=== PATIENT | female | born 1985 | race Two or more races ===

== ENCOUNTER 2019-08-03 09:27 | Emergency (ER) | payer OTHER ==
[~2019-08-03] VITALS: Ht 162.6 cm; Wt 88.0 kg
[2019-08-03] MEDS ORDERED: PRENATAL 19 TA1 EACH PO (10:12)
[2019-08-03] MEDS ORDERED: CHILDREN'S ASPI81 MG PO (10:13)
[2019-08-03] MEDS ORDERED: FOLIC ACID0.8 M1 PO (10:13)
== END 2019-08-03 16:01 | disposition home or self-care (01) ==
LOC: ER 09:27
DX: O26.892 Other specified pregnancy related conditions, second trimester (principal); K21.9 Gastro-esophageal reflux disease without esophagitis; R10.2 Pelvic and perineal pain; O35.3XX1 Maternal care for (suspected) damage to fetus from viral disease in mother, fetus 1; Z34.82 Encounter for supervision of other normal pregnancy, second trimester

== ENCOUNTER → 2019-09-04 | Outpatient (CLI) | payer OTHER ==
[~2019-09-04] MED LIST: CHILDREN'S ASPI81 MG PO; FOLIC ACID0.8 M1 PO; PRENATAL 19 TA1 EACH PO; PROTONIX40 MG PO; ZOFRAN4 MG PO
== END | disposition home or self-care (01) ==
LOC: PRENATAL 07:58
DX: O26.842 Uterine size-date discrepancy, second trimester (principal); O99.212 Obesity complicating pregnancy, second trimester; O99.012 Anemia complicating pregnancy, second trimester

== ENCOUNTER 2019-09-12 23:46 | Emergency (ER) | payer OTHER ==
[~2019-09-12] VITALS: Ht 162.6 cm; Wt 88.0 kg
[~2019-09-12 23:46] MED LIST changes: -PROTONIX40 MG PO; -ZOFRAN4 MG PO
[2019-09-13] MEDS ORDERED: ZOFRAN4 MG PO (05:51)
[2019-09-13] MEDS ORDERED: PROTONIX40 MG PO (05:51)
== END 2019-09-13 06:06 | disposition home or self-care (01) ==
LOC: ER 23:46
DX: K21.9 Gastro-esophageal reflux disease without esophagitis (principal)

== ENCOUNTER 2019-12-18 10:30 | Outpatient (CLI) | payer OTHER ==
[~2019-12-18 10:30] MED LIST changes: +PROTONIX40 MG PO; +ZOFRAN4 MG PO
== END 2019-12-18 13:43 | disposition home or self-care (01) ==
LOC: OBS/DEL 10:30
PROVIDERS: ATTEND Obstetrics & Gynecology
DX: O47.1 False labor at or after 37 completed weeks of gestation (principal)

== ENCOUNTER 2019-12-27 04:04 | Inpatient (IN) | payer OTHER ==
[~2019-12-27] VITALS: Ht 162.6 cm; Wt 195.0 kg
== END 2019-12-29 11:26 | disposition home or self-care (01) | DRG 807 ==
LOC: LDR 04:04 → OB/GYN 19:37
PROVIDERS: ADMIT Obstetrics & Gynecology; ATTEND Obstetrics & Gynecology
PROC: 10E0XZZ Delivery of Products of Conception, External Approach (ICD-10-PCS; principal; 2019-12-27)
PROC: 0KQM0ZZ Repair Perineum Muscle, Open Approach (ICD-10-PCS; 2019-12-27)
PROC: 3E0P7VZ Introduction of Hormone into Female Reproductive, Via Natural or Artificial Opening (ICD-10-PCS; 2019-12-27)
PROC: 3E033VJ Introduction of Other Hormone into Peripheral Vein, Percutaneous Approach (ICD-10-PCS; 2019-12-27)
PROC: 4A1HXCZ Monitoring of Products of Conception, Cardiac Rate, External Approach (ICD-10-PCS; 2019-12-27)
DX: O70.1 Second degree perineal laceration during delivery (principal); Z37.0 Single live birth; Z3A.39 39 weeks gestation of pregnancy; O99.824 Streptococcus B carrier state complicating childbirth